=== PATIENT | female | born 1940 | race Caucasian/White ===

== ENCOUNTER 2025-03-25 05:10 | Inpatient (IN) | payer SELFPAY ==
[~2025-03-25] VITALS: Ht 160 cm; Wt 60.3 kg
[2025-03-25 05:13] VITALS: O2SAT 96
[2025-03-25 07:05] LABS: CLARITY URINE CLEAR (CLEAR); COLOR URINE YELLOW (YELLOW); GLUCOSE URINE NEGATIVE (NEGATIVE); KETONES URINE NEGATIVE (NEGATIVE); LEUKOCYTE ESTERASE URINE NEGATIVE (NEGATIVE); NITRITE URINE NEGATIVE (NEGATIVE); OCCULT BLOOD URINE NEGATIVE (NEGATIVE); PH URINE 6.0 (4.5-8.0); PROTEIN URINE NEGATIVE (NEGATIVE); SPECIFIC GRAVITY URINE 1.006 (1.005-1.030); UROBILINOGEN URINE 0.2 E.U./dL (0.2-1.0)
[2025-03-25] MEDS ORDERED: CLONIDINE 0.1MG TABLET PO PRN (08:15)
[2025-03-25] MEDS ORDERED: ONDANSETRON HCL 4MG/2ML INJ IV PRN (08:15)
[2025-03-25] MEDS ORDERED: ACETAMINOPHEN 325MG TABLET PO PRN ×2 (08:15)
[2025-03-25] MEDS ORDERED: KETOROLAC 30MG/ML VIAL IV PRN (08:15)
[2025-03-25] MEDS ORDERED: IPRATROPIUM/ALBUTEROL 0.5-3(2.5)MG/3ML NEB HHN PRN (08:15)
[2025-03-25] MEDS ORDERED: DEXTROSE 50% WATER 50ML SYRINGE IV PRN (08:15)
[2025-03-25 09:00] LABS: CREATININE 0.6 mg/dL (0.6-1.0); UREA NITROGEN BLOOD 16 mg/dL (9-23)
[2025-03-25] MEDS: AMLODIPINE 5MG TABLET PO SCH (09:00)
[2025-03-25] MEDS: PANTOPRAZOLE SODIUM 40 MG/VIAL IV SCH (09:00)
[2025-03-25 09:01] LABS: TROPONIN I HIGH SENSITIVITY 10 ng/L (3.0-34)
[2025-03-25 09:04] LABS: BASOPHILS % 0.8 % (0.0-2.0); EOSINOPHILS % 1.3 % (0.0-5.0); HEMATOCRIT. 39.7 % (36.0-48.0); HEMOGLOBIN. 12.9 g/dL (12.0-16.0); LYMPHOCYTES % 25.6 % (20.0-50.0); MEAN PLATELET VOLUME 8.6 fl (7.4-10.4); MONOCYTES % 7.3 % (2.0-8.0); NEUTROPHILS % 65.0 % (40.0-76.0); PLATELET 266 x1000/uL (130-400); RED BLOOD CELL COUNT 4.37 mill/uL (4.2-5.4); RED CELL DISTRIBUTION WIDTH 14.5 % (11.6-14.6)
[2025-03-25] MEDS ORDERED: KETOROLAC 15MG/ML VIAL IV PRN (09:15)
[2025-03-25 09:25] VITALS: BP 106/79; PULSE 63; RESP 16; TEMP 35.9; O2SAT 99
[2025-03-25] MEDS: SODIUM CHLORIDE 0.9% 500 ML IV ONE (10:05)
[2025-03-25 11:36] VITALS: BP 106/79; PULSE 63; RESP 16; TEMP 35.9176
[2025-03-25] MEDS: ENOXAPARIN 30MG/0.3ML SYR SUBCUT SCH (12:00)
[2025-03-25] MEDS: BLOOD SUGAR DIAGNOSTIC STRIP TEST SCH (13:08)
[2025-03-25] MEDS: INSULIN LISPRO 100 UNITS/ML SUBCUT SCH (13:10)
[2025-03-25] MEDS: ENOXAPARIN 60MG/0.6ML SYR SUBCUT NR (14:15)
[2025-03-25 16:00] LABS: PHOSPHORUS 2.2 mg/dL (2.5-4.9)
[2025-03-25 16:40] LABS: TROPONIN I HIGH SENSITIVITY 8 ng/L (3.0-34)
[2025-03-25 16:47] VITALS: BP 109/53; PULSE 55; RESP 18; TEMP 36.6; O2SAT 98
[2025-03-25 19:04] LABS: SODIUM URINE RANDOM 162 mEq/L
[2025-03-25 19:34] LABS: OSMOLALITY URINE 599 mOsm/kg (500-850)
[2025-03-25 20:00] VITALS: BP 114/61; PULSE 58; RESP 18; TEMP 36.1; O2SAT 96
[2025-03-26 04:10] VITALS: BP 109/66; PULSE 59; RESP 18; TEMP 36.4; O2SAT 97
[2025-03-26 08:00] VITALS: BP 138/72; PULSE 66; RESP 18; TEMP 36.3; O2SAT 98
[2025-03-26 09:23] LABS: *AMPHETAMINES SCREEN URINE NEGATIVE (NEGATIVE)
[2025-03-26 09:24] LABS: *BARBITURATES SCREEN URINE NEGATIVE (NEGATIVE); *BENZODIAZEPINES SCREEN URINE NEGATIVE (NEGATIVE); *COCAINE SCREEN URINE NEGATIVE (NEGATIVE); CANNABINOID URINE SCREEN NEGATIVE (NEGATIVE); ECSTASY MDMA SCREEN URINE NEGATIVE (NEGATIVE); METHADONE URINE SCREEN NEGATIVE (NEGATIVE); OPIATES URINE SCREEN NEGATIVE (NEGATIVE); PHENCYCLIDINE URINE SCREEN NEGATIVE (NEGATIVE)
[2025-03-26] MEDS ORDERED: APIX5TAB MT (10:44)
[2025-03-26 11:47] LABS: BASOPHILS % 0.9 % (0.0-2.0); EOSINOPHILS % 1.3 % (0.0-5.0); HEMATOCRIT. 46.2 % (36.0-48.0); HEMOGLOBIN. 15.0 g/dL (12.0-16.0); LYMPHOCYTES % 27.5 % (20.0-50.0); MEAN PLATELET VOLUME 8.6 fl (7.4-10.4); MONOCYTES % 9.0 % (2.0-8.0); NEUTROPHILS % 61.3 % (40.0-76.0); PLATELET 272 x1000/uL (130-400); RED BLOOD CELL COUNT 5.01 mill/uL (4.2-5.4); RED CELL DISTRIBUTION WIDTH 14.7 % (11.6-14.6)
[2025-03-26 12:00] VITALS: BP 148/86; PULSE 73; RESP 20; TEMP 36.4; O2SAT 99
[2025-03-26 12:01] LABS: CREATININE 0.7 mg/dL (0.6-1.0)
[2025-03-26 12:02] LABS: LDL CHOLESTEROL 157 mg/dL (5-100); TRIGLYCERIDE 128 mg/dL (0-150); UREA NITROGEN BLOOD 14 mg/dL (9-23)
[2025-03-26 12:03] LABS: ASPARTATE AMINOTRANSFERASE 17 IU/L (<34); BILIRUBIN DIRECT 0.2 mg/dL (<=3.0); PHOSPHORUS 2.5 mg/dL (2.5-4.9)
[2025-03-26 12:04] LABS: BILIRUBIN TOTAL 0.7 mg/dL (0.1-1.0); PROTEIN TOTAL 7.0 g/dL (6.0-8.3)
[2025-03-26 12:05] LABS: T4 FREE 1.62 ng/dL (0.89-1.76)
[2025-03-26] MEDS: OXYBUTYNIN CHLORIDE 5MG TABLET PO SCH (14:37)
[2025-03-26 16:00] VITALS: BP 138/79; PULSE 75; RESP 20; TEMP 36.5; O2SAT 100
[2025-03-26 20:00] VITALS: BP 146/65; PULSE 61; RESP 19; TEMP 36.6; O2SAT 97
[2025-03-27 04:00] VITALS: BP 138/63; PULSE 64; RESP 18; TEMP 36.7; O2SAT 98
[2025-03-27 08:00] VITALS: BP 117/66; PULSE 80; RESP 16; TEMP 37.1; O2SAT 100
[2025-03-27 11:40] VITALS: BP_SYST 126; BP_SYST 129; BP_SYST 145; BP_DIAS 73; BP_DIAS 75; PULSE 80; RESP 20; TEMP 97.5
[2025-03-27 12:00] VITALS: BP 133/60; PULSE 67; RESP 16; TEMP 37.1; O2SAT 97
[2025-03-27] MEDS ORDERED: APIX5TAB MT (14:35)
[2025-03-27 16:00] VITALS: BP 139/78; PULSE 75; RESP 18; TEMP 36.1; O2SAT 97
[2025-03-27 20:00] VITALS: BP 139/65; PULSE 86; RESP 20; TEMP 36.4; O2SAT 97
[2025-03-28] VITALS: BP 144/65; PULSE 71; RESP 20; TEMP 36.5; O2SAT 97
[2025-03-28 04:00] VITALS: BP 131/61; PULSE 62; RESP 18; TEMP 36.6; O2SAT 97
[2025-03-28 08:48] VITALS: BP 109/62; PULSE 69; RESP 20; TEMP 37.1; O2SAT 96
[2025-03-28 12:38] VITALS: BP 119/64; PULSE 78; RESP 20; TEMP 37; O2SAT 96
[2025-03-28 16:00] VITALS: BP 126/61; PULSE 79; RESP 18; TEMP 36.8; O2SAT 97
[2025-03-28 20:00] VITALS: BP 122/68; PULSE 80; RESP 18; TEMP 36.6; O2SAT 99
[2025-03-29] VITALS: PULSE 82; RESP 18; TEMP 36.6; O2SAT 98
[2025-03-29 04:00] VITALS: PULSE 82; RESP 18; TEMP 36.6; O2SAT 98
[2025-03-29 08:00] VITALS: BP 137/71; PULSE 62; RESP 17; TEMP 36.6; O2SAT 97
[2025-03-29] MEDS: OXYBUTYNIN CHLORIDE 5MG TABLET PO SCH (11:54)
[2025-03-29 12:00] VITALS: BP 124/72; PULSE 64; RESP 18; TEMP 36.3; O2SAT 98
[2025-03-29 12:15] LABS: CLARITY URINE CLEAR (CLEAR); COLOR URINE YELLOW (YELLOW); GLUCOSE URINE NEGATIVE (NEGATIVE); KETONES URINE NEGATIVE (NEGATIVE); LEUKOCYTE ESTERASE URINE 2+ (NEGATIVE); NITRITE URINE NEGATIVE (NEGATIVE); OCCULT BLOOD URINE TRACE (NEGATIVE); PH URINE 5.0 (4.5-8.0); PROTEIN URINE NEGATIVE (NEGATIVE); SPECIFIC GRAVITY URINE 1.019 (1.005-1.030); UROBILINOGEN URINE 0.2 E.U./dL (0.2-1.0)
[2025-03-29 13:53] LABS: SQUAMOUS EPITHELIAL CELL URINE 1+ /lpf (RARE/1+)
[2025-03-29 13:55] LABS: BACTERIA URINE 3+; RBC URINE 0-2 /hpf (0-2); WBC URINE 25-50 /hpf (0-2); YEAST URINE NONE SEEN
[2025-03-29 16:00] VITALS: BP 118/65; PULSE 78; RESP 18; TEMP 36.3; O2SAT 98
[2025-03-29 16:38] LABS: CREATININE 0.8 mg/dL (0.6-1.0); UREA NITROGEN BLOOD 15 mg/dL (9-23)
[2025-03-29 19:09] LABS: BASOPHILS % 1.0 % (0.0-2.0); EOSINOPHILS % 1.5 % (0.0-5.0); HEMATOCRIT. 37.9 % (36.0-48.0); HEMOGLOBIN. 12.6 g/dL (12.0-16.0); LYMPHOCYTES % 25.5 % (20.0-50.0); MEAN PLATELET VOLUME 9.2 fl (7.4-10.4); MONOCYTES % 9.5 % (2.0-8.0); NEUTROPHILS % 62.5 % (40.0-76.0); PLATELET 256 x1000/uL (130-400); RED BLOOD CELL COUNT 4.19 mill/uL (4.2-5.4); RED CELL DISTRIBUTION WIDTH 14.5 % (11.6-14.6)
[2025-03-29 20:00] VITALS: BP 113/74; PULSE 85; RESP 19; TEMP 35.9; O2SAT 98
[2025-03-30] VITALS: BP 128/68; PULSE 85; RESP 18; TEMP 36.2; O2SAT 98
[2025-03-30 12:00] VITALS: BP 129/62; PULSE 66; RESP 18; TEMP 36.1; O2SAT 98
[2025-03-30] MEDS: NITROFURANTOIN 100MG M/M CAPSULE PO SCH (15:54)
[2025-03-30 16:00] VITALS: BP 125/56; PULSE 64; RESP 18; TEMP 36.4; O2SAT 97
[2025-03-30 16:55] VITALS: BP 129/82; PULSE 66; RESP 17; TEMP 97
[2025-03-30] MEDS ORDERED: NITR100C MT (19:56)
[2025-03-30 20:00] VITALS: BP 130/78; PULSE 75; RESP 17; TEMP 36.3; O2SAT 96
[2025-03-30] MEDS ORDERED: CEFTRIAXONE 1,000 MG in DEXT 5% WATER 100 ML IV SCH (20:15)
[2025-03-30] MEDS: CEFTRIAXONE 1GM/50ML 50 ML IV SCH (22:00)
[2025-03-31 06:00] VITALS: BP 136/62; PULSE 92; RESP 18; TEMP 36.2; O2SAT 95
[2025-03-31 08:00] VITALS: BP 134/81; PULSE 85; RESP 18; TEMP 36.4; O2SAT 96
[2025-03-31] MEDS: ASPIRIN 81MG TABLET PO SCH (10:15)
[2025-03-31 12:00] VITALS: BP 137/90; PULSE 85; RESP 18; TEMP 36.6; O2SAT 97
[2025-03-31 16:00] VITALS: BP 135/75; PULSE 86; RESP 18; TEMP 36.4; O2SAT 98
[2025-03-31 20:00] VITALS: BP_SYST 128; BP_SYST 18; BP_DIAS 75; PULSE 85; RESP 18; TEMP 36.6; O2SAT 97
[2025-04-01] VITALS: BP 122/67; PULSE 85; RESP 17; TEMP 36.7; O2SAT 98
[2025-04-01 04:00] VITALS: BP 119/59; PULSE 78; RESP 18; TEMP 36.7; O2SAT 96
[2025-04-01 08:00] VITALS: BP 109/65; PULSE 67; RESP 19; TEMP 36.5; O2SAT 97
[2025-04-01 12:00] VITALS: BP 120/70; PULSE 69; RESP 18; TEMP 36.7; O2SAT 98
[2025-04-01 16:00] VITALS: BP 133/64; PULSE 66; RESP 18; TEMP 36.7; O2SAT 97
[2025-04-01 20:00] VITALS: BP 128/60; PULSE 68; RESP 19; TEMP 36.7; O2SAT 98
[2025-04-02] VITALS: BP 127/71; PULSE 72; RESP 18; TEMP 36.6; O2SAT 97
[2025-04-02 08:00] VITALS: BP_SYST 118; BP_SYST 127; BP_DIAS 67; BP_DIAS 96; PULSE 86; RESP 17; TEMP 36.5; O2SAT 99
[2025-04-02] MEDS: FAMOTIDINE 20MG/2ML VIAL IV SCH (09:00)
[2025-04-02 12:00] VITALS: BP 139/76; PULSE 65; RESP 17; TEMP 36.4; O2SAT 99
[2025-04-02 16:00] VITALS: BP 109/78; PULSE 73; RESP 16; TEMP 36.3; O2SAT 96
[2025-04-02 20:00] VITALS: BP 126/66; PULSE 78; RESP 19; TEMP 36.6; O2SAT 98
[2025-04-03] VITALS: BP 129/69; PULSE 78; RESP 18; TEMP 36.7; O2SAT 98
[2025-04-03 04:00] VITALS: BP 117/52; PULSE 76; RESP 16; TEMP 36.7; O2SAT 97
[2025-04-03 08:00] VITALS: BP 156/84; PULSE 86; RESP 17; TEMP 35.9; O2SAT 97
[2025-04-03 12:00] VITALS: BP 132/70; PULSE 72; RESP 17; TEMP 36.2; O2SAT 100
[2025-04-03 13:59] VITALS: BP 132/70; PULSE 72; TEMP 97.2
== END 2025-04-03 14:30 | disposition home or self-care (01) | DRG 463 ==
LOC: ER 05:10 → EDBEDREQTM 08:07 → EDBEDREQ 08:07 → EDBEDREQTM 08:08 → ENRESERV 08:25 → 7WST 09:18 → 4WST 03-28 15:45
PROVIDERS: ADMIT Internal Medicine; ATTEND Internal Medicine
DX: N39.0 Urinary tract infection, site not specified (principal); E11.9 Type 2 diabetes mellitus without complications; I10 Essential (primary) hypertension; J45.909 Unspecified asthma, uncomplicated; R07.2 Precordial pain; E78.5 Hyperlipidemia, unspecified; E83.52 Hypercalcemia; M71.20 Synovial cyst of popliteal space [Baker], unspecified knee; F17.210 Nicotine dependence, cigarettes, uncomplicated; G89.29 Other chronic pain; M54.50 Low back pain, unspecified; M79.605 Pain in left leg; Z86.718 Personal history of other venous thrombosis and embolism
CPT/HCPCS: 36415; 71045; 80048; 80061; 80076; 80305; 81003; 82330; 82340; 82962; 83036; 83735; 83935; 84100; 84300; 84439; 84443; 84484; 85025; 87077; 87186; 93005; 93970; 97162; 99285; A4606; J0696; J2470